=== PATIENT | female | born 1965 | race Caucasian/White ===

== ENCOUNTER 2018-05-04 20:00 | Inpatient (IN) | payer OTHER ==
[2018-05-04 20:13] LABS: Glucose,Whole Blood 89 mg/dL (75-99)
[2018-05-04] MEDS ORDERED: SODIUM CHLORIDE 0.9% 500 ML IV STA (20:13)
[2018-05-04] MEDS ORDERED: ONDANSETRON 4 MG/2 ML VIAL IVP STA (20:13)
[2018-05-04 20:26] LABS: Basophils # (A) 0.1 k/uL (0-0.2); Basophils % (A) 1 %; Eosinophils # (A) 0.1 k/uL (0-0.7); Eosinophils % (A) 1 %; HCT 47.8 % (34.0-46.0); HGB 15.9 gm/dL (11.4-16.0); Lymphocytes # (A) 3.4 k/uL (1.0-4.8); Lymphocytes % (A) 30 %; MCH 30.2 pg (25.0-35.0); MCHC 33.2 g/dL (31.0-37.0); MCV 90.8 fL (80.0-100.0); Mean Platelet Volume 6.5; Monocytes # (A) 0.4 k/uL (0-1.0); Monocytes % (A) 3 %; Neutrophils # (A) 7.1 k/uL (1.3-7.7); Neutrophils % (A) 63 %; Platelet Count 211 k/uL (150-450); RBC 5.27 m/uL (3.80-5.40); RDW 13.5 % (11.5-15.5); WBC 11.3 k/uL (3.8-10.6)
[2018-05-04 20:35] LABS: Calcium 10.7 mg/dL (8.4-10.2); Potassium 4.3 mmol/L (3.5-5.1); Total Bilirubin 0.3 mg/dL (0.2-1.3); Total Protein 9.6 g/dL (6.3-8.2)
[2018-05-04 20:36] LABS: Partial Thromboplastin Time 24.4 sec (22.0-30.0)
[2018-05-04 20:46] LABS: Creatine Kinase 27 U/L (30-135)
[2018-05-04 20:59] LABS: Creatine Kinase MB 0.5 ng/mL (0.0-2.4); Troponin I <0.012 ng/mL (0.000-0.034)
--- NOTE | 2018-05-04 21:16 | ED ---
General Adult HPI - General Chief complaint: Weakness Stated complaint: Neuro Deficits Source: patient, EMS Mode of arrival: EMS Limitations: physical limitation - History of Present Illness Initial comments: Dictation was produced using [employer] dictation software. please excuse any grammatical, word or spelling errors. Chief Complaint: 52-year-old female transferred from detox facility [facility] for left-sided facial droop History of Present Illness: Patient is a 52-year-old female with past medical history of IV drug abuse presents with facial droop. Patient states she's been feeling rather sick over the last several days. She did not notice any facial weakness. Patient was noted by [facility] staff. She reports some paresthesias to the upper and lower face. Denies any numbness pain or paresthesias to the upper extremities. She denies any history of strokes. She states she does not take any medications. She states that she has had recent flulike symptoms. The ROS documented in this emergency department record has been reviewed and confirmed by me. Those systems with pertinent positive or negative responses have been documented in the HPI. All other systems are other negative and/or noncontributory. Review of Systems ROS Statement: Those systems with pertinent positive or pertinent negative responses have been documented in the HPI. ROS Other: All systems not noted in ROS Statement are negative. Past Medical History Past Medical History: No Reported History History of Any Multi-Drug Resistant Organisms: None Reported Past Surgical History: Cholecystectomy, Orthopedic Surgery Past Psychological History: Anxiety, Depression Smoking Status: Current every day smoker Past Alcohol Use History: None Reported Past Drug Use History: Cocaine, Heroin, Marijuana, Prescription Drug Abuse General Exam - General Exam Comments Initial Comments: PHYSICAL EXAM: General Impression: Alert and oriented x3, not in acute distress HEENT: Normocephalic atraumatic, extra-ocular movements intact, pupils equal and reactive to light bilaterally, mucous membranes moist, TMs benign bilaterally Cardiovascular: Heart regular rate and rhythm, S1&S2 audible, no murmurs, rubs or gallops Chest: Lungs clear to auscultation bilaterally, no rhonchi, no wheeze, no rales Abdomen: Bowel sounds present, abdomen soft, non-tender, non-distended, no organomegaly Musculoskeletal: Pulses present and equal in all extremities, no peripheral edema Motor: Power 5/5 bilaterally, no focal deficits noted Neurological: Left-sided facial droop of the upper and lower left face Skin: Intact with no visualized rashes Psych: Normal affect and mood Limitations: physical limitation Course Vital Signs 05/04/18 05/04/18 05/04/18 20:00 20:06 20:15 Temperature 98.7 F Pulse Rate 94 80 76 Respiratory 18 18 18 Rate Blood Pressure 151/94 152/94 148/90 O2 Sat by Pulse 98 98 99 Oximetry Medical Decision Making - Medical Decision Making ED course: 52-year-old female presents with facial paralysis. Vital signs upon arrival are within acceptable limits. Patient reevaluated and has weakness of her left upper extremity and facial droop of the left lower face. Clinical presentation suggestive of CVA. Patient had TPA candidate at this time given the duration of symptoms.Patient's NIH is 3. Patient has a history of neuropathy unable to assess bilateral lower extremities secondary to chronic bilateral lower extremity weakness. CBC is obtained with a white count of 11.3. Rest of CBC unremarkable Panel unremarkable. Metabolic panel shows findings within acceptable limits. Chest x-ray shows no acute processes. Brain CT shows no acute intracranial hemorrhage or midline shift. There is diffuse H changes. There is nonspecific focus of low attenuation in the frontal white matter likely from chronic vessel ischemic changes. Patient reevaluated having persistent symptoms. Patient given an aspirin. Patient to be admitted to inpatient for CVA workup. Neurology on consult. EKG interpretation: Ventricular rate 74, IA interval 122, QS 84, QTc 435. No IA prolongation, no QTC prolongation, no ST or T-wave changes noted. EKG compared to [default value] showing no changes. Overall, this EKG is unremarkable - Lab Data Result diagrams: 05/04/18 20:13 05/04/18 20:13 Lab Results 05/04/18 05/04/18 05/04/18 Range/Units 20:12 20:13 20:13 WBC 11.3 H (3.8-10.6) k/uL RBC 5.27 (3.80-5.40) m/uL Hgb 15.9 (11.4-16.0) gm/dL Hct 47.8 H (34.0-46.0) % MCV 90.8 (80.0-100.0) fL MCH 30.2 (25.0-35.0) pg MCHC 33.2 (31.0-37.0) g/dL RDW 13.5 (11.5-15.5) % Plt Count 211 (150-450) k/uL Neutrophils % 63 % Lymphocytes % 30 % Monocytes % 3 % Eosinophils % 1 % Basophils % 1 % Neutrophils # 7.1 (1.3-7.7) k/uL Lymphocytes # 3.4 (1.0-4.8) k/uL Monocytes # 0.4 (0-1.0) k/uL Eosinophils # 0.1 (0-0.7) k/uL Basophils # 0.1 (0-0.2) k/uL PT (9.0-12.0) sec INR (<1.2) APTT (22.0-30.0) sec Sodium (137-145) mmol/L Potassium (3.5-5.1) mmol/L Chloride (98-107) mmol/L Carbon Dioxide (22-30) mmol/L Anion Gap mmol/L BUN (7-17) mg/dL Creatinine (0.52-1.04) mg/dL Est GFR (CKD-EPI)AfAm (>60 ml/min/1.73 sqM) Est GFR (CKD-EPI)NonAf (>60 ml/min/1.73 sqM) Glucose (74-99) mg/dL POC Glucose (mg/dL) 89 (75-99) mg/dL POC Glu Twisting [employer] Operator MOHAMUD Jenifer Desir Calcium (8.4-10.2) mg/dL Total Bilirubin (0.2-1.3) mg/dL AST (14-36) U/L ALT (9-52) U/L Alkaline Phosphatase (38-126) U/L Total Creatine Kinase 27 L (30-135) U/L CK-MB (CK-2) 0.5 (0.0-2.4) ng/mL CK-MB (CK-2) Rel Index 1.9 Troponin I <0.012 (0.000-0.034) ng/mL Total Protein (6.3-8.2) g/dL Albumin (3.5-5.0) g/dL 05/04/18 05/04/18 Range/Units 20:13 20:13 WBC (3.8-10.6) k/uL RBC (3.80-5.40) m/uL Hgb (11.4-16.0) gm/dL Hct (34.0-46.0) % MCV (80.0-100.0) fL MCH (25.0-35.0) pg MCHC (31.0-37.0) g/dL RDW (11.5-15.5) % Plt Count (150-450) k/uL Neutrophils % % Lymphocytes % % Monocytes % % Eosinophils % % Basophils % % Neutrophils # (1.3-7.7) k/uL Lymphocytes # (1.0-4.8) k/uL Monocytes # (0-1.0) k/uL Eosinophils # (0-0.7) k/uL Basophils # (0-0.2) k/uL PT 10.0 (9.0-12.0) sec INR 1.0 (<1.2) APTT 24.4 (22.0-30.0) sec Sodium 146 H (137-145) mmol/L Potassium 4.3 (3.5-5.1) mmol/L Chloride 112 H (98-107) mmol/L Carbon Dioxide 23 (22-30) mmol/L Anion Gap 11 mmol/L BUN 23 H (7-17) mg/dL Creatinine 0.92 (0.52-1.04) mg/dL Est GFR (CKD-EPI)AfAm 83 (>60 ml/min/1.73 sqM) Est GFR (CKD-EPI)NonAf 72 (>60 ml/min/1.73 sqM) Glucose 79 (74-99) mg/dL POC Glucose (mg/dL) (75-99) mg/dL POC Glu Twisting [employer] Operator ID Calcium 10.7 H (8.4-10.2) mg/dL Total Bilirubin 0.3 (0.2-1.3) mg/dL AST 32 (14-36) U/L ALT 56 H (9-52) U/L Alkaline Phosphatase 188 H (38-126) U/L Total Creatine Kinase (30-135) U/L CK-MB (CK-2) (0.0-2.4) ng/mL CK-MB (CK-2) Rel Index Troponin I (0.000-0.034) ng/mL Total Protein 9.6 H (6.3-8.2) g/dL Albumin 5.0 (3.5-5.0) g/dL Disposition Clinical Impression: CVA (cerebral vascular accident) Disposition: ADMITTED IP TO THIS HOSP Condition: Fair Referrals: None,Stated [Primary Care Provider] - 1-2 days Decision Time: 22:23
--- NOTE | 2018-05-04 21:26 | XR ---
EXAMINATION TYPE: XR chest 2V DATE OF EXAM: 05/04/2018 COMPARISON: NONE HISTORY: Neuro deficits. Altered mental status. TECHNIQUE: Frontal and lateral views of the chest are obtained. FINDINGS: There is no focal air space opacity, pleural effusion, or pneumothorax seen. The cardiac silhouette size is within normal limits. The osseous structures are intact. IMPRESSION: No acute cardiopulmonary process.
--- NOTE | 2018-05-04 21:28 | CT ---
EXAMINATION TYPE: CT brain wo con DATE OF EXAM: 05/04/2018 HISTORY: High blood pressure and headache x 3 days. Neural deficits per order. CT DLP: 937.5 mGycm. Automated Exposure Control for Dose Reduction was Utilized. TECHNIQUE: CT scan of the head is performed without contrast. COMPARISON: None. FINDINGS: There is no acute intracranial hemorrhage or midline shift identified. There is diffuse v entricular and sulcal prominence consistent with diffuse age-related cerebral atrophy. There is some nonspecific areas of low attenuation in the deep white matter for reference right frontal lobe axial image 28. The globes are intact and the visualized sinuses are clear. IMPRESSION: No acute intracranial hemorrhage or midline shift. There is mild diffuse age-related ce rebral atrophy. Nonspecific focus of low attenuation right frontal white matter most likely on the ba sis product of chronic small vessel ischemic change in patient of this age.
[2018-05-04] MEDS ORDERED: ASPIRIN 325 MG TAB PO STA (22:13)
[2018-05-04] MEDS: SODIUM CHLORIDE 0.9% 1,000 ML IV SCH (22:56)
[2018-05-05 00:46] VITALS: BMI 20.1
[2018-05-05] MEDS: HYDROcodone/APAP 5-325MG 1 EACH TAB PO PRN ×5 (03:34→20:28)
[2018-05-05 04:21] LABS: Amphetamine Screen,Urine Not Detected (NotDetected); Barbiturate Screen,Urine Not Detected (NotDetected); Benzodiazepines Screen,Urine Not Detected (NotDetected); Cocaine Screen,Urine Not Detected (NotDetected); Methadone Screen, Urine Not Detected (NotDetected); Opiate Screen,Urine Not Detected (NotDetected); Oxycodone Screen, Urine Not Detected (NotDetected); Phencyclidine Screen,Urine Not Detected (NotDetected); Tricyclic Antidepressant,Urine Not Detected (NotDetected); Urn Cannabinoid Scrn Not Detected (NotDetected)
[2018-05-05 06:21] LABS: Appearance,Urine Clear (Clear); Bilirubin,Urine Negative (Negative); Blood,Urine Negative (Negative); Color,Urine Light Yellow; Glucose,Urine (UA) Negative (Negative); Ketones,Urine Negative (Negative); Leukocyte Esterase,Urine Negative (Negative); Nitrite,Urine Negative (Negative); Protein,Urine Negative (Negative); Specific Gravity,Urine 1.008 (1.001-1.035); Urobilinogen,Urine <2.0 mg/dL (<2.0)
[2018-05-05 07:01] LABS: Cholesterol 158 mg/dL (<200); HDL Cholesterol 50 mg/dL (40-60); LDL Cholesterol,Calculated 59 mg/dL (0-99); Triglycerides 243 mg/dL (<150)
[2018-05-05] MEDS: NICOTINE 21MG/24HR PATCH TRANSDERM SCH (08:17)
[2018-05-05] MEDS: ASPIRIN 325 MG TAB PO SCH (08:17)
--- NOTE | 2018-05-05 09:13 | US ---
EXAMINATION TYPE: US carotid duplex BILAT DATE OF EXAM: 05/05/2018 COMPARISON: NONE CLINICAL HISTORY: Stenosis. High blood pressure, stroke per patient EXAM MEASUREMENTS: RIGHT: Peak Systolic Velocity (PSV) cm/sec ----- Right CCA: 85.7 ----- Right ICA: 91.8 ----- Right ECA: 87.9 ICA/CCA ratio: 1.1 RIGHT: End Diastole cm/sec ----- Right CCA: 28.9 ----- Right ICA: 24.5 ----- Right ECA: 21.9 LEFT: Peak Systolic Velocity (PSV) cm/sec ----- Left CCA: 80.6 ----- Left ICA: 101.6 ----- Left ECA: 82.2 ICA/CCA ratio: 1.3 LEFT: End Diastole cm/sec ----- Left CCA: 25.7 ----- Left ICA: 40.2 ----- Left ECA: 14.4 VERTEBRALS (direction of flow): Right Vertebral: Antegrade Left Vertebral: Antegrade Rhythm: Normal Mild amount of intimal thickening visualized bilaterally. No elevated velocities, no significant sten osis. IMPRESSION: I DO NOT SEE EVIDENCE OF A HEMODYNAMICALLY SIGNIFICANT STENOSIS IN EITHER CAROTID SYSTEM. Criteria for Assigning % of Stenosis / Diameter reduction (Estimation based on the indirect measurements of the internal carotid artery velocities (ICA PSV). 1. Normal (no stenosis)=ICA PSV < 125 cm/s: ratio < 2.0: ICA EDV<40 cm/s. 2. Less than 50% stenosis=ICA PSV < 125 cm/s: ratio < 2.0: ICA EDV<40 cm/s. 3. 50 to 69% stenosis=ICA PSV of 125 to 230 cm/s: ration 2.0 ? 4.0: ICA EDV 40-100 cm/s. 4. Greater than 70% stenosis to near occlusion= ICA PSV > 230 cm/s: ratio > 4.0: ICA EDV > 100 cm/s. 5. Near occlusion= ICA PSV velocities may be low or undetectable: variable ratio and ICA EDV. 6. Total occlusion=unable to detect flow.
[2018-05-05] MEDS ORDERED: ONDANSETRON 4 MG/2 ML VIAL IVP PRN (12:05)
[2018-05-05] MEDS: LORazepam 0.5 MG TAB PO PRN ×2 (17:04→22:53)
[2018-05-05] MEDS: ACETAMINOPHEN TAB 325 MG TAB PO SCH ×2 (17:04→22:52)
--- NOTE | 2018-05-05 19:15 | HP ---
HISTORY AND PHYSICAL DATE OF SERVICE: 05/05/2019. CHIEF COMPLAINT: Left facial droop. HISTORY OF PRESENT ILLNESS: This is a 52-year-old woman with a past medical history of anxiety, depression, cholecystectomy, DJD being followed by primary physician elsewhere, was in a detox facility for IV heroin in [facility]. In the facility, the patient was noted to be feeling sick over the past several days. The patient noted left side facial paralysis. Patient also had some paresthesia, numbness and weakness of the left upper extremity also. Stroke was suspected. Patient taken to [facility] and was admitted for further evaluation and treatment. Initial lab showed WBC 11.8 , sodium 146, and triglycerides 243. The drug screen is negative and a CT scan of the brain was done which showed no intracranial hemorrhage or midline shift. Mild diffuse age - related cerebral atrophy is noted. Low attenuation right frontal white matter changes was also noted and carotid Doppler was also done which showed no evidence of any hemodynamically venous stenosis. Patient admitted to the hospital for further evaluation and treatment. Neurology evaluation in progress. There is no history of fever, rigors or chills. No history of headache, loss of consciousness or seizures. PAST MEDICAL HISTORY: Of IV drug abuse, hypertension, anxiety, depression, history of nicotine dependence. MEDICATIONS: Prior to admission: 1. Motrin 600 mg t.i.d. p.r.n. 2. Tylenol 650 q.6h p.r.n. ALLERGIES: Are DARVOCET-N100. FAMILY HISTORY: History of hypertension in the family. SOCIAL HISTORY: History of smoking. History of IV heroin. REVIEW OF SYSTEMS: ENT: No diminished hearing or vision. CARDIOVASCULAR: As mentioned above. RESPIRATORY: As mentioned. GI: No nausea or vomiting. no dysuria. CENTRAL NERVOUS SYSTEM: No numbness or weakness. ALLERGY/IMMUNOLOGY: No asthma or hayfever. MUSCULOSKELETAL: As mentioned earlier. HEMATOLOGY/ONCOLOGY: No history of anemia. ENDOCRINE: No history of diabetes or hypothyroidism. CONSTITUTIONAL: As mentioned. Dermatology: Negative. Rheumatology: Negative. Psychiatry: As mentioned earlier. PHYSICAL EXAMINATION: GENERAL: The patient is alert and oriented times three. VITAL SIGNS: Pulse 77, blood pressure 161/80, respiration 18, temperature 97.3, pulse ox 98 percent on room air. HEENT: Conjunctivae normal. Oral mucosa moist. NECK is no jugular venous distention. No carotid bruit. No lymph node enlargement. Cardiovascular systems: S1, S2. Respiration: Breath sounds diminished in the bases. A few scattered rhonchi and crackles. ABDOMEN: Soft, nontender. No mass palpable. Legs: No edema and no swelling. NERVOUS SYSTEM: Higher functions as mentioned earlier. Otherwise, in all directions. Otherwise significant left upper nodule and facial palsy. Significant weakness of the left upper limb also present. No sensory abnormalities. No sensory or cerebral dysfunction. Lymphatics: No lymph nodes palpable in the neck, axillae or groin. Joints: No active deforming arthropathy. Skin: No ulcer, rash or bleeding. LAB STUDIES: WBC 11.7, sodium 148, other labs are noted. ASSESSMENT: 1. Acute left-sided weakness, stroke, possibly right hemispheric lesion. 2. Increased WBC. 3. Hypertension. 4. Hypernatremia. 5. Increased ALT. 6. History of IV drug abuse, heroin. 7. Hypertriglyceridemia. 8. History of degenerative joint disease. 9. History of anxiety, depression. 10.History of cocaine, heroin, THC, prescription drug abuse. RECOMMENDATIONS AND DISCUSSION: In this 52-year-old woman who presented with multiple complex medical issues, we will monitor the patient closely, continue the current medications, management and symptomatic treatment. Otherwise, at this time, I recommend antiplatelet agents, Lipitor complete neurovascular work up. I would also recommend a 2D echo with Doppler and MRI of the brain also. If the MRI is positive I also recommend possibly YARELY as well. The prognosis guarded because of multiple complex medical issues. See orders for details. MMODL / IJN: [id number] / MTDD
[2018-05-05] MEDS: ATORVASTATIN 20 MG TAB PO SCH (20:29)
[2018-05-05] MEDS: HEPARIN SODIUM,PORCINE 5,000 UNIT/ML 1 ML VIAL SQ SCH (20:29)
[2018-05-05] MEDS: SODIUM CHLORIDE 0.9% 1,000 ML IV SCH (21:03)
--- NOTE | 2018-05-05 22:17 | P.CNNES ---
History of Present Illness Consult date: 05/05/18 Reason for Consult: Patient with left side facial droop and left sided weakness and sroke. History of Present Illness: This patient is a 52-year-old right-handed white female who was from the [facility] in [place]. Patient states she lives in [facility] and was in the [facility] program for the last 12 days. Apparently yesterday she complained to the nursing staff at [facility] that she was having difficulty with her speech as well as some left facial droop. Nursing staff did notice left-sided facial droop at the time and decided to send her to the emergency room at [facility] for further evaluation. She was seen in the ER yesterday by Dr. Kilgore and was evaluated. Her NIH stroke scale was 3.0. Patient was not a candidate for TPA given the time duration and symptoms. She was outside of the TPA window. She was sent for a computed tomography scan of the brain which revealed no acute intracranial hemorrhage or midline shift. There was mild diffuse age-related cerebral atrophy. Nonspecific focus of low attenuation was noted in the right frontal lobe suggesting chronic small vessel ischemia. The patient was subsequently admitted to the hospital for a complete stroke evaluation. Review of her CAT scan does show a clear hypodensity suggesting possibility of acute versus subacute stroke. She does have left-sided weakness and slurred speech as well. We will proceed with a complete stroke evaluation for this patient. She has no previous history of TIA or stroke. We have recommended a complete stroke evaluation for this patient. Patient states her blood pressure at the [facility] was elevated for 4 days prior to her admission. She is now been started on antihypertensive medication. She is now been admitted and neurology has been consulted for further evaluation and recommendations. Review of Systems Constitutional: Denies chills, Denies fever Eyes: denies blurred vision, denies pain Ears, nose, mouth and throat: Denies headache, Denies sore throat Cardiovascular: Reports high blood pressure, Denies chest pain, Denies shortness of breath Respiratory: Denies cough Genitourinary: Denies dysuria, Denies hematuria Musculoskeletal: Denies myalgias Integumentary: Denies pruritus, Denies rash Neurological: Reports change in mentation, Reports change in speech, Reports confusion, Reports motor disturbance, Reports paresthesias, Reports tingling, Denies numbness, Denies weakness Psychiatric: Reports memory loss, Denies anxiety, Denies depression Endocrine: Denies fatigue, Denies weight change Past Medical History Past Medical History: No Reported History, Hypertension History of Any Multi-Drug Resistant Organisms: None Reported Past Surgical History: Cholecystectomy, Orthopedic Surgery Past Psychological History: Anxiety, Depression Smoking Status: Current every day smoker Past Alcohol Use History: None Reported Past Drug Use History: Cocaine, Heroin, Marijuana, Prescription Drug Abuse - Past Family History Mother Family Medical History: Hypertension Medications and Allergies Home Medications Medication Instructions Recorded Confirmed Type Acetaminophen Tab [Tylenol Tab] 650 mg PO Q6H 05/05/18 05/05/18 History Ibuprofen [Motrin Ib] 600 mg PO TID PRN 05/05/18 05/05/18 History Allergies Allergy/AdvReac Type Severity Reaction Status Date / Time acetaminophen Allergy Unknown Verified 05/05/18 12:07 [From Darvocet-N] propoxyphene Allergy Unknown Verified 05/05/18 12:07 [From Darvocet-N] Physical Examination - Vital Signs Vital Signs: Vital Signs Temp Pulse Pulse Resp BP BP Pulse Ox 05/05/18 04:00 97.9 F 69 16 143/84 99 05/04/18 23:10 64 18 171/100 99 05/04/18 22:56 97.8 F 58 L 18 134/84 99 05/04/18 21:00 64 18 133/92 99 05/04/18 20:15 76 18 148/90 99 05/04/18 20:06 98.7 F 80 18 152/94 98 05/04/18 20:00 94 18 151/94 98 Intake and Output 05/04/18 05/05/18 05/05/18 22:59 06:59 14:59 Output Total 500 Balance -500 Output: Urine 500 Other: Voiding Method Bedpan Weight 45.3 kg 49.5 kg - Constitutional General appearance: average body habitus, cooperative - EENT EENT: PERRL, mucous membranes moist - Respiratory Respiratory: lungs clear, normal breath sounds - Cardiovascular Cardiovascular: regular rate, normal S1, normal S2 Extremities: no peripheral edema bilaterally - Gastrointestinal Gastrointestinal: normoactive bowel sounds - Integumentary Integumentary: normal - Neurologic Cranial nerve examination: PERRL, EOMI, VFF, V1/V2/V3 grossly intact, intact gag reflex, intact corneal reflex, facial droop (Patient has a left upper motor neuron facial weakness pattern.), normal palatal elevation Speech examination: intact Sensorimotor examination: intact Motor examination - right side: 4/5: biceps, triceps, wrist flexion, wrist extension, registered dental hygienist, hip flexors, knee extensors, dorsiflexion, toe extension (EHL) , plantarflexion Motor examination - left side: 3/5: biceps, triceps, wrist flexion, wrist extension, registered dental hygienist, hip flexors, 4/5: knee extensors, dorsiflexion, toe extension ( EHL), plantarflexion Detailed sensory examination: intact Reflex and gait examination: intact Reflexes: 1+: ankle, bicep, knee, tricep - Musculoskeletal Musculoskeletal: no pain - Psychiatric Psychiatric: mood/affect appropriate, cooperative Results - Laboratory Findings CBC and BMP: 05/04/18 20:13 05/04/18 20:13 Abnormal Lab Findings: Abnormal Labs 05/04/18 05/04/18 05/04/18 20:13 20:13 20:13 WBC 11.3 H Hct 47.8 H Sodium 146 H Chloride 112 H BUN 23 H Calcium 10.7 H ALT 56 H Alkaline Phosphatase 188 H Total Creatine Kinase 27 L Total Protein 9.6 H Triglycerides 05/05/18 04:00 WBC Hct Sodium Chloride BUN Calcium ALT Alkaline Phosphatase Total Creatine Kinase Total Protein Triglycerides 243 H Assessment and Plan (1) Acute right arterial ischemic stroke, MCA (middle cerebral artery) Current Visit: Yes Status: Acute Code(s): I63.511 - CEREB INFRC D/T UNSP OCCLS OR STENOS OF RIGHT MID CEREB ART SNOMED Code(s): 887558416 (2) Hypertension Current Visit: Yes Status: Acute Code(s): I10 - ESSENTIAL (PRIMARY) HYPERTENSION SNOMED Code(s): 70212220 (3) Hyperlipidemia Current Visit: Yes Status: Acute Code(s): E78.5 - HYPERLIPIDEMIA, UNSPECIFIED SNOMED Code(s): 36023357 (4) IV drug abuse Current Visit: Yes Status: Acute Code(s): F19.10 - OTHER PSYCHOACTIVE SUBSTANCE ABUSE, UNCOMPLICATED SNOMED Code(s): 109658068 Plan: This patient is a 52-year-old female who is currently been residing at [facility] for the past 12 days. Today she was complaining of difficulty with her speech as well as left-sided weakness and left facial droop. She was brought into the emergency room at [facility] for further evaluation. She was seen in the ER by Dr. Kilgore ordered a computed tomography scan of the brain results which are noted above. Patient was not a candidate for TPA as she was having NIH stroke scale of 3.0 and was outside of the TPA window. She was admitted to hospital for a complete stroke evaluation. Computed tomography scan of the brain was done and reveals a hypodensity in the right frontoparietal region. We have recommended a MRI of the brain for further evaluation. We have recommended a complete stroke evaluation. The patient at this time. She should be maintained on 1 aspirin daily for secondary stroke prevention. She does have a history of IV drug abuse and should return to [facility] program once she medically stable. We will await the results of the MRI of the brain and we will give further recommendations at that time. Her overall prognosis at this time remains guarded. We will continue close neurological follow-up of this patient during this admission. Time with Patient: Greater than 30
[2018-05-06] MEDS: HYDROcodone/APAP 5-325MG 1 EACH TAB PO PRN ×6 (01:28→22:51)
[2018-05-06] MEDS: LORazepam 0.5 MG TAB PO PRN ×4 (04:58→22:55)
[2018-05-06] MEDS: ACETAMINOPHEN TAB 325 MG TAB PO SCH ×4 (05:51→22:48)
[2018-05-06] MEDS: PANTOPRAZOLE 40 MG TABLET PO SCH (06:29)
[2018-05-06 06:32] LABS: Basophils % (A) 1 %; Eosinophils # (A) 0.1 k/uL (0-0.7); Eosinophils % (A) 1 %; HCT 48.7 % (34.0-46.0); HGB 15.8 gm/dL (11.4-16.0); Lymphocytes # (A) 2.4 k/uL (1.0-4.8); Lymphocytes % (A) 38 %; MCH 29.7 pg (25.0-35.0); MCHC 32.5 g/dL (31.0-37.0); MCV 91.5 fL (80.0-100.0); Mean Platelet Volume 6.2; Monocytes # (A) 0.2 k/uL (0-1.0); Monocytes % (A) 4 %; Neutrophils # (A) 3.4 k/uL (1.3-7.7); Neutrophils % (A) 54 %; Platelet Count 169 k/uL (150-450); RBC 5.32 m/uL (3.80-5.40); RDW 13.3 % (11.5-15.5); WBC 6.3 k/uL (3.8-10.6)
[2018-05-06 06:42] LABS: ALT 48 U/L (9-52); AST 27 U/L (14-36); Albumin 4.2 g/dL (3.5-5.0); Alkaline Phosphatase 147 U/L (38-126); Anion Gap 9 mmol/L; Blood Urea Nitrogen 13 mg/dL (7-17); Calcium 9.6 mg/dL (8.4-10.2); Carbon Dioxide 20 mmol/L (22-30); Chloride 112 mmol/L (98-107); Glucose 98 mg/dL (74-99); Potassium 4.3 mmol/L (3.5-5.1); Sodium 141 mmol/L (137-145); Total Bilirubin 0.4 mg/dL (0.2-1.3); Total Protein 8.2 g/dL (6.3-8.2)
--- NOTE | 2018-05-06 08:57 | MR ---
EXAMINATION TYPE: MR brain wo/w con DATE OF EXAM: 05/06/2018 COMPARISON: CT brain 05/04/2018 HISTORY: Stroke TECHNIQUE: Multiplanar, multisequence images of the brain and brainstem is performed without and with IV contras t, utilizing 5 mL intravenous Gadavist . FINDINGS: Diffusion weighted images demonstrate no evidence of a recent infarct or other diffusion ab normality. There is no extra-axial fluid collection or significant white matter signal abnormality. The ventricular system and cisternal spaces are normal in size and appearance. The brain volume is age appropriate. Midline structures demonstrate normal morphology. The craniocervical junction appears within normal limits. Post contrast images demonstrate no abnormal enhancement. The dural venous sinuses appear pa tent. Next sentence there is a partially empty sella turcica with a prominent CSF measuring 1.2 cm Ma y represent a small suprasellar arachnoid cyst. Changes of mild chronic sinusitis. Nasal septal deviation with changes of chronic sinusitis noted. WHITE MATTER: There are approximately 15-20 focal areas of abnormal signal within the white matter. This includes a reas within the jess. The largest lesion is seen within the right parietal lobe measuring approximately 8 mm. There are no enhancing lesions. There are no callosal lesions. There are no lesions perpendicular to the ventricular system. IMPRESSION: 1. No evidence of acute ischemia. 2. There are nonspecific white matter changes bilaterally. Differential diagnosis would include demye linating process or remote microvascular ischemia. Other etiologies including sarcoidosis, Lyme's dis ease or vasculitis are also in the differential diagnosis. 3. 1.2 cm CSF prominence in the suprasellar cistern suggestive of a small arachnoid cyst. Partially e mpty sella turcica noted.
[2018-05-06] MEDS: ASPIRIN 325 MG TAB PO SCH (09:50)
[2018-05-06] MEDS: HEPARIN SODIUM,PORCINE 5,000 UNIT/ML 1 ML VIAL SQ SCH ×2 (09:50→20:34)
[2018-05-06] MEDS: NICOTINE 21MG/24HR PATCH TRANSDERM SCH (09:51)
--- NOTE | 2018-05-06 12:13 | ECHOF ---
Referral Reason:Thrombus MEASUREMENTS -------- HEIGHT: 127.0 cm WEIGHT: 49.4 kg BP: 157/86 IVSd: 1.0 cm (0.6 - 1.1) LVIDd: 3.4 cm (3.9 - 5.3) LVPWd: 1.2 cm (0.6 - 1.1) IVSs: 1.4 cm LVIDs: 2.5 cm LVPWs: 1.6 cm LAESV Index (A-L): 16.10 ml/m Ao Diam: 2.8 cm (2.0 - 3.7) AV Cusp: 1.6 cm (1.5 - 2.6) LA Diam: 2.8 cm (2.7 - 3.8) MV EXCURSION: 10.998 mm (> 18.000) MV EF SLOPE: 84 mm/s (70 - 150) EPSS: 1.1 cm MV E Reuben: 0.44 m/s MV DecT: 215 ms MV A Reuben: 0.65 m/s MV E/A Ratio: 0.68 RAP: 5.00 mmHg RVSP: 9.56 mmHg FINDINGS -------- Sinus rhythm. This was a technically good study. The left ventricular size is normal. There is mild concentric left ventricular hypertrophy. Overa ll left ventricular systolic function is normal with, an EF between 55 - 60 %. The right ventricle is normal in size. The left atrium is normal in size. The right atrium is normal in size. The aortic valve is trileaflet, and appears structurally normal. No aortic stenosis or regurgitation. The mitral valve leaflets are mildly thickened. Mild mitral regurgitation is present. Mild tricuspid regurgitation present. There is no evidence of pulmonary hypertension. The right v entricular systolic pressure, as measured by Doppler, is 9.56mmHg. There is no pulmonic regurgitation present. The aortic root size is normal. Normal inferior vena cava with normal inspiratory collapse consistent with estimated right atrial pre ssure of 5 mmHg. There is no pericardial effusion. CONCLUSIONS -------- 1. Sinus rhythm. 2. This was a technically good study. 3. The left ventricular size is normal. 4. There is mild concentric left ventricular hypertrophy. 5. Overall left ventricular systolic function is normal with, an EF between 55 - 60 %. 6. The left atrium is normal in size. 7. The aortic valve is trileaflet, and appears structurally normal. No aortic stenosis or regurgitati on. 8. The mitral valve leaflets are mildly thickened. 9. Mild mitral regurgitation is present. 10. Mild tricuspid regurgitation present. 11. There is no evidence of pulmonary hypertension. 12. There is no pulmonic regurgitation present. 13. The aortic root size is normal. 14. Normal inferior vena cava with normal inspiratory collapse consistent with estimated right atrial pressure of 5 mmHg. 15. There is no pericardial effusion. TERRA[employer] WORKER APPRENTICE: Allegra Shearer RDCS
--- NOTE | 2018-05-06 18:49 | PN ---
PROGRESS NOTE DATE OF SERVICE: 05/06/2018. INTERVAL HISTORY: This 52-year-old woman who was admitted with left facial droop, possible acute stroke. MRI did not show significant acute abnormality. 2D echo with Doppler showed ejection fraction around 55-60 percent. No other major valvular abnormalities as well. No chest pain. No palpitations. No fever. PHYSICAL EXAM: Alert and oriented x3. Pulse is 85, blood pressure 130/104, respiration 18, temperature 97.7, pulse ox 98 percent on room air. HEENT: Conjunctivae normal. Oral mucosa moist. Neck is no jugular venous distention. No carotid bruit. Cardiovascular: S1, S2. RESPIRATORY: Breath sounds diminished in the bases. No rhonchi. No crackles. ABDOMEN: Soft, nontender. Legs: Bilateral weakness secondary to scoliosis. Nervous system: Left facial droop and upper neuron motor facial palsy and as well as left upper limb weakness present. LABS: WBC 6.2, hemoglobin 15.8, sodium 140, potassium 4.3. ASSESSMENT: 1. Acute left-sided stroke caused by possible right hemispheric lesion. 2. Increased WBC. 3. Hypertension. 4. Hyponatremia. 5. Increased ALT. 6. History of IV drug abuse heroin. 7. Hypertriglyceridemia. 8. History of degenerative joint disease. 9. History of anxiety, depression. 10.History of cocaine, heroin, THC and prescription drug abuse. 11.Bilateral leg weakness secondary to scoliosis. 12.Gait dysfunction. RECOMMENDATIONS AND DISCUSSION: In this 52-year-old woman who presented with multiple complex medical issues, we will monitor the patient closely, continue the current medications, management and symptomatic treatment. Otherwise, at this time, I recommend possibly ECF rehab. PT/OT evaluation. Otherwise, if the family wants to take her home, we will arrange home care but overall prognosis guarded because of above mentioned multiple medical issues. Further recommendations to follow. MMODL / IJN: [id number] /
[2018-05-06] MEDS: ATORVASTATIN 20 MG TAB PO SCH (20:34)
[2018-05-06] MEDS: SODIUM CHLORIDE 0.9% 1,000 ML IV SCH (20:36)
--- NOTE | 2018-05-06 20:58 | EEG ---
ELECTROENCEPHALOGRAM REPORT DATE OF EE05/06/2018. ELECTROENCEPHALOGRAPHIC EXAMINATION REPORT: REFERRING PHYSICIAN: Dr. Valdovinos. CONSULTING/INTERPRETING PHYSICIAN: Sriram Tan MD INDICATION FOR EXAMINATION: This patient is a 52-year-old female being evaluated for acute stroke-like symptoms and altered mental status. AGE: [age]. EEG FINDINGS: A routine 21 channel awake digital EEG recording was accomplished utilizing the 10-20 international system with bipolar and referential montages. The background activity in the most alert resting state consists of a low to medium amplitude, fairly well- developed and well sustained 8-9 hertz activity over the posterior head regions. This posterior rhythm attenuates to eye opening. There is a small amount of low amplitude 18-20 Hz beta activity seen maximally over the anterior head regions. Muscle and movement artifact was observed on a few occasions during the tracing. Hyperventilation was not performed. Photic stimulation at flash frequencies of 2-30 Hz produced a minimal occipital driving response. No epileptiform discharges were seen. IMPRESSION: This EEG is within normal limits for the patient's age. The EEG failed to reveal any focal, lateralized, or epileptiform abnormalities. Clinical correlation is recommended. MMODL / IJN: [id number] /
[2018-05-07] MEDS: HYDROcodone/APAP 5-325MG 1 EACH TAB PO PRN ×6 (02:56→23:53)
[2018-05-07] MEDS: LORazepam 0.5 MG TAB PO PRN ×3 (05:23→18:42)
[2018-05-07] MEDS: ACETAMINOPHEN TAB 325 MG TAB PO SCH ×4 (05:23→23:54)
[2018-05-07] MEDS: PANTOPRAZOLE 40 MG TABLET PO SCH (06:18)
[2018-05-07 06:24] LABS: Basophils % (A) 1 %; Eosinophils # (A) 0.1 k/uL (0-0.7); Eosinophils % (A) 1 %; HCT 46.9 % (34.0-46.0); HGB 14.8 gm/dL (11.4-16.0); Lymphocytes # (A) 2.1 k/uL (1.0-4.8); Lymphocytes % (A) 37 %; MCH 29.1 pg (25.0-35.0); MCHC 31.6 g/dL (31.0-37.0); MCV 91.9 fL (80.0-100.0); Mean Platelet Volume 6.2; Monocytes # (A) 0.2 k/uL (0-1.0); Monocytes % (A) 4 %; Neutrophils # (A) 3.1 k/uL (1.3-7.7); Neutrophils % (A) 55 %; Platelet Count 155 k/uL (150-450); RDW 13.3 % (11.5-15.5); WBC 5.7 k/uL (3.8-10.6)
[2018-05-07 06:28] LABS: ALT 54 U/L (9-52); AST 30 U/L (14-36); Alkaline Phosphatase 148 U/L (38-126); Anion Gap 10 mmol/L; Blood Urea Nitrogen 13 mg/dL (7-17); Calcium 9.3 mg/dL (8.4-10.2); Carbon Dioxide 19 mmol/L (22-30); Chloride 112 mmol/L (98-107); Glucose 91 mg/dL (74-99); Potassium 4.2 mmol/L (3.5-5.1); Sodium 141 mmol/L (137-145); Total Bilirubin 0.4 mg/dL (0.2-1.3); Total Protein 7.8 g/dL (6.3-8.2)
[2018-05-07] MEDS: NICOTINE 21MG/24HR PATCH TRANSDERM SCH (08:03)
[2018-05-07] MEDS: HEPARIN SODIUM,PORCINE 5,000 UNIT/ML 1 ML VIAL SQ SCH ×2 (08:03→20:18)
--- NOTE | 2018-05-07 09:38 | P.CRDCN ---
History of Present Illness Consult date: 05/07/18 Requesting physician: Helena Thurman Reason for Consult (text): YARELY Chief complaint: Left-sided facial paralysis History of present illness: This is a 52-year-old female with history of anxiety and depression, nicotine dependence, she is currently at [facility] for IV heroin use , over the past few days patient states she has not been feeling well at all, she's been feeling weak. She noticed numbness in the left side of her face and left upper extremity, she also stated that when she touched the left side of her face she couldn't feel it. She presented to the hospital for these reasons. Initial lab work revealed a white blood cell count of 11.8, sodium 146 , potassium 4.3, BUN 23, creatinine 0.9. Troponin negative. Triglycerides 243 , cholesterol 158, LDL 59, HDL 50. Drug screen negative. CAT scan of the brain did not reveal any acute intracranial hemorrhage or midline shift. There is mild diffuse age-related cerebral atrophy noted. Nonspecific focus of low attenuation in the right frontal white matter, most likely on the basis of chronic small vessel ischemic change. EKG showed normal sinus rhythm with no acute changes. MRI does not reveal evidence of acute ischemia, nonspecific white matter changes bilaterally. 1.2 cm CSF prominence in the suprasellar system suggestive of small arachnoid cyst. EEG normal for patient's age. Carotid Doppler study did not reveal evidence of hemodynamically significant stenosis. I pressure on arrival here 150/90, heart rate in the 90s, 98% on 2 L of oxygen, she was afebrile. Blood pressure this morning 144/80 with a heart rate in the 80s, 98% on room air. At the time of my examination this morning, patient complains of pain in her back and to bilateral legs, she states that the numbness in her left hand has resolved, still some mild facial numbness per the patient. Cardiology was requested to see the patient to perform a transesophageal echocardiogram. Past Medical History Past Medical History: No Reported History, Hypertension History of Any Multi-Drug Resistant Organisms: None Reported Past Surgical History: Cholecystectomy, Orthopedic Surgery Past Psychological History: Anxiety, Depression Smoking Status: Current every day smoker Past Alcohol Use History: None Reported Past Drug Use History: Cocaine, Heroin, Marijuana, Prescription Drug Abuse - Past Family History Mother Family Medical History: Hypertension Medications and Allergies Home Medications Medication Instructions Recorded Confirmed Type Acetaminophen Tab [Tylenol Tab] 650 mg PO Q6H 05/05/18 05/05/18 History Ibuprofen [Motrin Ib] 600 mg PO TID PRN 05/05/18 05/05/18 History Allergies Allergy/AdvReac Type Severity Reaction Status Date / Time acetaminophen Allergy Unknown Verified 05/05/18 12:07 [From Darvocet-N] propoxyphene Allergy Unknown Verified 05/05/18 12:07 [From Darvocet-N] Physical Exam Vitals: Vital Signs Temp Pulse Resp BP Pulse Ox 05/07/18 08:00 96.4 F L 86 18 144/81 98 05/07/18 03:41 73 18 05/07/18 03:39 97.2 F L 73 18 156/89 97 05/07/18 00:00 98.0 F 93 18 154/101 98 05/06/18 20:00 98.4 F 90 18 157/98 97 05/06/18 16:00 97.9 F 93 18 144/90 97 05/06/18 12:00 97.7 F 85 18 136/104 98 05/06/18 09:49 97.4 F L 85 18 155/87 97 Intake and Output 05/06/18 05/07/18 05/07/18 22:59 06:59 14:59 Other: Voiding Method Bedpan Bedpan # Voids 1 Weight 49.5 kg PHYSICAL EXAMINATION: GENERAL: 52-year-old female in no acute distress at the time of my examination HEENT: Head is atraumatic, normocephalic. Pupils equal, round. Sclera anicteric. Conjunctiva are clear. Mucous membranes of the mouth are moist. Neck is supple. There is no elevated jugular venous pressure. No carotid bruit is heard. HEART EXAMINATION: Heart S1, S2 normal. No murmur or gallop heard. CHEST EXAMINATION: Lungs are clear to auscultation and precussion. No chest wall tenderness is noted on palpation or with deep breathing. ABDOMEN: Soft, nontender. Bowel sounds are heard. No organomegaly noted. EXTREMITIES: 2+ peripheral pulses with no evidence of peripheral edema and no calf tenderness noted. NEUROLOGIC [patient is awake, alert and oriented X3, patient does complain of some mild left-sided facial numbness this morning. Results 05/07/18 05:35 05/07/18 05:35 Cardiac Enzymes 05/07/18 Range/Units 05:35 AST 30 (14-36) U/L CBC 05/07/18 Range/Units 05:35 WBC 5.7 (3.8-10.6) k/uL RBC 5.10 (3.80-5.40) m/uL Hgb 14.8 (11.4-16.0) gm/dL Hct 46.9 H (34.0-46.0) % Plt Count 155 (150-450) k/uL Comprehensive Metabolic Panel 05/07/18 Range/Units 05:35 Sodium 141 (137-145) mmol/L Potassium 4.2 (3.5-5.1) mmol/L Chloride 112 H (98-107) mmol/L Carbon Dioxide 19 L (22-30) mmol/L BUN 13 (7-17) mg/dL Creatinine 0.60 (0.52-1.04) mg/dL Glucose 91 (74-99) mg/dL Calcium 9.3 (8.4-10.2) mg/dL AST 30 (14-36) U/L ALT 54 H (9-52) U/L Alkaline Phosphatase 148 H (38-126) U/L Total Protein 7.8 (6.3-8.2) g/dL Albumin 4.0 (3.5-5.0) g/dL Current Medications Generic Name Dose Route Start Last Admin Trade Name Freq PRN Reason Stop Dose Admin Acetaminophen 650 mg 05/05/18 18:00 05/07/18 05:23 Tylenol Tab PO Not Given Q6HR AGATHA Hydrocodone Bitart/Acetaminophen 1 each 05/05/18 03:04 05/07/18 08:00 [place] 5-325 PO 1 each Q4HR PRN Administration Pain Aspirin 325 mg 05/05/18 09:00 05/06/18 09:50 Aspirin PO 325 mg DAILY AGATHA Administration Atorvastatin Calcium 20 mg 05/05/18 21:00 05/06/18 20:34 Lipitor PO 20 mg HS AGATHA Administration Heparin Sodium (Porcine) 5,000 unit 05/05/18 21:00 05/07/18 08:03 Heparin SQ 5,000 unit Q12HR AGATHA Administration Sodium Chloride 1,000 mls @ 20 mls/hr 05/04/18 22:15 05/06/18 20:36 Saline 0.9% IV 20 mls/hr .Q24H AGATHA Administration Lorazepam 0.5 mg 05/05/18 13:55 05/07/18 05:23 Ativan PO 0.5 mg Q6HR PRN Administration Anxiety Nicotine 1 patch 05/05/18 09:00 05/07/18 08:03 Habitrol 21mg/24hr Patch TRANSDERM 1 patch DAILY AGATHA Administration Ondansetron HCl 4 mg 05/05/18 12:05 05/05/18 12:19 Zofran IVP 4 mg Q6HR PRN Administration Nausea And Vomiting Pantoprazole Sodium 40 mg 05/06/18 07:30 05/07/18 06:18 Protonix PO 40 mg [id number] AGATHA Administration Intake and Output 05/06/18 05/07/18 05/07/18 22:59 06:59 14:59 Other: Voiding Method Bedpan Bedpan # Voids 1 Weight 49.5 kg 05/07/18 05:35 05/07/18 05:35 EKG Interpretations (text) EKG shows normal sinus rhythm with no acute changes. Assessment and Plan Plan: Assessment and plan #1 symptoms of left-sided hand numbness and left-sided facial weakness, CVA. #2 hypertension #3 hyponatremia #4 hypertension anemia #5 history of IV drug abuse with heroin, and cocaine currently in rehab #6 anxiety and depression Plan Echocardiogram with Doppler study was performed which revealed an ejection fraction of 55-60%. Cardiology has been requested to perform a YARELY on the patient today. The risks and the benefits of the procedure were explained to the patient in detail and she is willing to proceed. This will be performed today by Dr. Wade. Further recommendations will be based on these findings and the patient's clinical course. DNP note has been reviewed, I agree with a documented findings and plan of care. Patient was seen and examined.
[2018-05-07] MEDS ORDERED: LACTATED RINGERS 1,000 ML IV ONE (14:06)
[2018-05-07] MEDS: MIDAZOLAM 2 MG/2 ML VIAL IV ONE ×2 (14:11→14:13)
[2018-05-07] MEDS: fentaNYL (PF) 50 MCG/ML 2 ML AMP IV ONE ×2 (14:11→14:13)
[2018-05-07] MEDS: ASPIRIN 325 MG TAB PO SCH (15:37)
[2018-05-07 16:46] LABS: Appearance,CSF Clear; CSF Tube Number 4; CSF Tube Volume 2; Nucleated Cells, CSF 0 u/L (0-5); Red Blood Cell,CSF 0 u/L (0-10)
--- NOTE | 2018-05-07 16:50 | PN ---
PROGRESS NOTE DATE OF SERVICE: 05/07/2018 This 52-year-old woman who was admitted with acute left-sided stroke caused by possible right hemispheric lesion still has significant weakness. No chest pain. No palpitations. No fever. No cough at this time. The patient is requesting to go home with home care at this time. The patient has significant difficulties with weakness also because of scoliosis and other issues as well. Cardiology has seen the patient and they are planning a YARELY. No chest pain. No palpitations. No fever. PHYSICAL EXAMINATION: Alert and oriented x3. Pulse 92, blood pressure 139/91, respiration 16, temperature 97.7, pulse ox 98% on 2 L. HEENT: Conjunctivae normal. Oral mucosa moist. NECK: No jugular venous distention. CARDIOVASCULAR SYSTEM: S1, S2 muffled. RESPIRATORY SYSTEM: Breath sounds diminished at the bases. There are scattered rhonchi. No crackles. ABDOMEN: Soft, non-tender. LEGS: No edema. No swelling. NERVOUS SYSTEM: Significant left hemiplegia as well as bilateral leg weakness also present. LABS: WBC 5.7, hemoglobin 14.8. Sodium 141. Chloride is 112 and alkaline phosphatase is 148. ASSESSMENT: 1. Acute left-sided stroke caused by possible right hemispheric lesion with acute cerebrovascular incident. 2. Increased white count. 3. Hypertension. 4. Hypernatremia. 5. Increased ALT. 6. History of IV drug abuse (heroin). 7. Hypertriglyceridemia. 8. History of degenerative joint disease. 9. Anxiety, depression. 10.History of cocaine, heroin, tetrahydrocannabinol, prescription drug abuse. 11.Bilateral leg weakness secondary to scoliosis. 12.Gait dysfunction. RECOMMENDATIONS AND DISCUSSION: I recommend to continue current medication, continue with antiplatelet agents, DVT prophylaxis, Lipitor. I also recommend YARELY to rule out intracardiac abnormality. Otherwise, prognosis is guarded because of multiple complex medical issues. Further recommendations to follow. MMODL / IJN: [id number] /
[2018-05-07 16:51] LABS: Total Protein,CSF 68 mg/dL (12-60)
[2018-05-07] MEDS: ATORVASTATIN 20 MG TAB PO SCH (20:18)
--- NOTE | 2018-05-07 23:03 | P.PN ---
Subjective Progress Note Date: 05/06/18 This patient is being evaluated for possible acute right hemispheric stroke. The patient presented with symptoms of left-sided facial droop and left arm weakness. She was in the drug rehabilitation program at [facility] for drug abuse. She was transferred to [facility] when she was noted to have left-sided facial droop. Patient was admitted and was able to undergo an initial computed tomography scan of the brain which failed to reveal any acute changes. She was able to complete MRI of the brain today which was reviewed and does reveal focal areas of abnormal signal in the deep white matter as well as the jess. The differential diagnosis would include ischemic stroke versus demyelinating disease such as multiple sclerosis. There were no enhancing lesions seen. We reviewed the results of the MRI today with the patient in detail. We have recommended that she undergo further testing which would include a lumbar puncture to rule out MS. We would also recommend cardiology consultation for YARELY procedure to be done to rule out possibility of PFO or atrial thrombus. We will consult with cardiology and weight their recommendation as well. The other differential diagnosis for this patient would be possibility of vasculitis. We recommend that she be evaluated by rheumatology and a consultation will be put in for Dr. Poe. The patient continues to have left-sided facial droop and weakness especially in her left upper extremity. The patient initially was considering discharge to home today however after we discussed all of her test results with her in detail she does want to proceed with further testing to establish a more definitive diagnosis for her condition. We will continue close neurological follow-up for the patient. Overall prognosis at this time remains guarded. Objective - Vital Signs Vital signs: Vital Signs Temp 97.4 F L 05/06/18 04:00 Pulse 70 05/06/18 04:00 Resp 18 05/06/18 04:00 BP 157/86 05/06/18 04:00 Pulse Ox 98 05/06/18 04:00 Intake & Output 05/05/18 05/06/18 05/06/18 18:59 06:59 18:59 Intake Total 160 Balance 160 Intake: IV 160 0.9 160 Other: Voiding Method Bedpan Bedpan # Voids 1 1 - Exam Physical Examination: PHYSICAL EXAMINATION: Patient is resting comfortably in bed. VITAL SIGNS: Blood pressure is [179/94]. Heart rate is [80]. Respiration is [20] . Temperature is [97.2]. HEENT: Head is atraumatic, neck is supple, there were no carotid bruits. CHEST: Lungs are clear to auscultation and percussion. CARDIAC: S1, S2 normal rate and rhythm. There is no murmur. ABDOMEN: Soft and nontender. Bowel sounds are present. EXTREMITIES: There is no pedal edema. Peripheral pulses are present. Neurological examination: Patient's neurological examination is unchanged from yesterday. She continues to demonstrate evidence of left-sided facial droop and left upper extremity weakness. Her speech is also slightly dysarthric at times. - Labs CBC & Chem 7: 05/07/18 05:35 05/07/18 05:35 Labs: Abnormal Lab Results - Last 24 Hours (Table) 05/06/18 05/06/18 Range/Units 06:03 06:03 Hct 48.7 H (34.0-46.0) % Chloride 112 H (98-107) mmol/L Carbon Dioxide 20 L (22-30) mmol/L Alkaline Phosphatase 147 H (38-126) U/L Assessment and Plan (1) Acute right arterial ischemic stroke, MCA (middle cerebral artery) Current Visit: Yes Status: Acute Code(s): I63.511 - CEREB INFRC D/T UNSP OCCLS OR STENOS OF RIGHT MID CEREB ART SNOMED Code(s): 285496104 (2) Hypertension Current Visit: Yes Status: Acute Code(s): I10 - ESSENTIAL (PRIMARY) HYPERTENSION SNOMED Code(s): 09665775 (3) Hyperlipidemia Current Visit: Yes Status: Acute Code(s): E78.5 - HYPERLIPIDEMIA, UNSPECIFIED SNOMED Code(s): 41746875 (4) IV drug abuse Current Visit: Yes Status: Acute Code(s): F19.10 - OTHER PSYCHOACTIVE SUBSTANCE ABUSE, UNCOMPLICATED SNOMED Code(s): 542078644 Plan: This patient is a 52-year-old female who was admitted to Hospital from [facility] program with symptoms of left-sided facial droop and left-sided weakness. The patient underwent MRI of the brain today which was reviewed in detail with the patient. There are abnormalities suggesting a differential diagnosis to include old evidence of ischemic stroke versus demyelinating disease such as MS. We have recommended the patient undergo lumbar puncture for further evaluation for MS. We have also recommended a rheumatology consultation for evaluation of INTERNET MARKETING DIRECTOR vasculitis. Dr. Poe has been consulted today. As noted the patient states that her symptoms came on suddenly while she was in the [facility] rehab program. She was being treated for IV drug abuse and heroin use. This also may be a contributing factor for the ischemic changes noted on the MRI of the brain. We have recommended the patient to undergo further evaluation and assessment. She was initially wanting to be discharged home today to her family but is now agreed to continue with our workup and recommendations so that a more definitive diagnosis for a can be given. This patient's overall prognosis at this time remains very guarded.
[2018-05-07 23:08] LABS: Amorphous Sediment,Urine Rare /hpf; Appearance,Urine Cloudy (Clear); Bilirubin,Urine Negative (Negative); Blood,Urine Negative (Negative); Color,Urine Yellow; Glucose,Urine (UA) Negative (Negative); Ketones,Urine Negative (Negative); Leukocyte Esterase,Urine Small (Negative); Mucus,Urine Rare /hpf; Nitrite,Urine Negative (Negative); PH, Urine 6.5 (5.0-8.0); Protein,Urine Negative (Negative); Specific Gravity,Urine 1.014 (1.001-1.035); Squamous Epithelial Cell,Urine 4 /hpf (0-4); Urobilinogen,Urine <2.0 mg/dL (<2.0); WBC,Urine 4 /hpf (0-5)
--- NOTE | 2018-05-07 23:15 | P.PN ---
Subjective Progress Note Date: 05/07/18 This patient is being evaluated for possible acute right hemispheric stroke. The patient did undergo MRI of the brain yesterday which revealed multiple lesions suggesting possibility of demyelinating disease versus chronic ischemic stroke areas. For this reason the patient was recommended yesterday to undergo a lumbar puncture for further evaluation for MS. She did complete the lumbar puncture this morning and we are waiting the final results. The MS panel will take 2 weeks to get the final report. We reviewed the results thus far with the patient in detail. She is scheduled to undergo YARELY procedure tomorrow to further evaluate for possibility of PFO versus atrial thrombus. The patient is to continue on aspirin daily for secondary stroke prevention. We also consulted rheumatology for further evaluation for SENIOR PROCUREMENT MANAGER vasculitis. Dr. Poe has been consulted yesterday and we will await her further recommendations. The patient otherwise seems to be relatively stable and unchanged in her neuro deficits as compared to yesterday. We did review the initial CSF results which indicate normal RBC and WBC counts. CSF protein was 68 CSF glucose 51. We would recommend the patient to continue on aspirin daily for secondary stroke prevention. As noted she is scheduled to have YARELY procedure done tomorrow morning and we will await the results from cardiology. Would continue with multiple specialists evaluating this patient for her current symptoms. We have discussed all of these findings is fine detail with the patient. She is aware of all test results. We will continue close neurological follow-up for the patient during this admission. Her overall prognosis at this time remains guarded. Objective - Vital Signs Vital signs: Vital Signs Temp 97.7 F 05/07/18 12:00 Pulse 93 05/07/18 14:34 Resp 16 05/07/18 14:34 BP 139/91 05/07/18 12:00 Pulse Ox 98 05/07/18 14:34 Intake & Output 05/07/18 05/07/18 05/08/18 06:59 18:59 06:59 Intake Total 150 Balance 150 Weight 49.5 kg Intake: IV 150 Other: Voiding Method Bedpan # Voids 1 0 1 - Exam Physical Examination: PHYSICAL EXAMINATION: Patient is resting comfortably in bed. VITAL SIGNS: Blood pressure is [139/91]. Heart rate is [87]. Respiration is [16] . Temperature is [97.7]. HEENT: Head is atraumatic, neck is supple, there were no carotid bruits. CHEST: Lungs are clear to auscultation and percussion. CARDIAC: S1, S2 normal rate and rhythm. There is no murmur. ABDOMEN: Soft and nontender. Bowel sounds are present. EXTREMITIES: There is no pedal edema. Peripheral pulses are present. Neurological examination: Patient's neurological examination is unchanged from yesterday. She continues to demonstrate evidence of left facial droop and left-sided hemiparesthesias. - Labs CBC & Chem 7: 05/07/18 05:35 05/07/18 05:35 Labs: Abnormal Lab Results - Last 24 Hours (Table) 05/07/18 05/07/18 05/07/18 Range/Units 05:35 05:35 13:30 Hct 46.9 H (34.0-46.0) % Chloride 112 H (98-107) mmol/L Carbon Dioxide 19 L (22-30) mmol/L ALT 54 H (9-52) U/L Alkaline Phosphatase 148 H (38-126) U/L CSF Total Protein 68 H (12-60) mg/dL Assessment and Plan (1) Acute right arterial ischemic stroke, MCA (middle cerebral artery) Current Visit: Yes Status: Acute Code(s): I63.511 - CEREB INFRC D/T UNSP OCCLS OR STENOS OF RIGHT MID CEREB ART SNOMED Code(s): 048287325 (2) Hypertension Current Visit: Yes Status: Acute Code(s): I10 - ESSENTIAL (PRIMARY) HYPERTENSION SNOMED Code(s): 77936694 (3) Hyperlipidemia Current Visit: Yes Status: Acute Code(s): E78.5 - HYPERLIPIDEMIA, UNSPECIFIED SNOMED Code(s): 21816859 (4) IV drug abuse Current Visit: Yes Status: Acute Code(s): F19.10 - OTHER PSYCHOACTIVE SUBSTANCE ABUSE, UNCOMPLICATED SNOMED Code(s): 203886590 Plan: This patient is a 52-year-old female who was transferred from [facility] for evaluation of left-sided facial droop and left-sided hemiparesthesias. Patient is undergone extensive stroke evaluation and completed a MRI of the brain yesterday. Results were reviewed with the patient in detail. The differential diagnosis for this MRI findings included multiple sclerosis. For this reason she underwent a lumbar puncture this morning and results are as noted above. Her actual MS panel results would take 2 weeks to obtain. In the meantime she is to undergo further testing including cardiology consultation for YARELY procedure which is scheduled to be done tomorrow morning. We have also consulted rheumatology and are waiting Dr. Poe to review of this patient's case and history for possibility of SENIOR PROCUREMENT MANAGER vasculitis. The patient has been updated on all of her test results today. She is awaiting eagerly to complete the YARELY procedure tomorrow morning. We will continue close neurological follow-up for the patient during this admission. Her overall prognosis at this time remains very guarded.
[2018-05-08] MEDS: LORazepam 0.5 MG TAB PO PRN ×3 (00:01→12:28)
[2018-05-08] MEDS: HYDROcodone/APAP 5-325MG 1 EACH TAB PO PRN ×4 (04:39→16:58)
[2018-05-08 06:12] LABS: Basophils % (A) 1 %; Eosinophils # (A) 0.1 k/uL (0-0.7); Eosinophils % (A) 2 %; HCT 47.4 % (34.0-46.0); HGB 15.5 gm/dL (11.4-16.0); Lymphocytes # (A) 2.3 k/uL (1.0-4.8); Lymphocytes % (A) 39 %; MCH 29.6 pg (25.0-35.0); MCHC 32.8 g/dL (31.0-37.0); MCV 90.2 fL (80.0-100.0); Mean Platelet Volume 6.3; Monocytes # (A) 0.2 k/uL (0-1.0); Monocytes % (A) 4 %; Neutrophils # (A) 3.2 k/uL (1.3-7.7); Neutrophils % (A) 53 %; Platelet Count 159 k/uL (150-450); RBC 5.25 m/uL (3.80-5.40)
[2018-05-08] MEDS: PANTOPRAZOLE 40 MG TABLET PO SCH (06:19)
[2018-05-08] MEDS: ACETAMINOPHEN TAB 325 MG TAB PO SCH ×3 (06:19→16:59)
[2018-05-08 06:32] LABS: ALT 65 U/L (9-52); AST 39 U/L (14-36); Albumin 4.3 g/dL (3.5-5.0); Alkaline Phosphatase 141 U/L (38-126); Anion Gap 9 mmol/L; Blood Urea Nitrogen 17 mg/dL (7-17); C Reactive Protein <5.0 mg/L (<10.0); Calcium 9.8 mg/dL (8.4-10.2); Carbon Dioxide 23 mmol/L (22-30); Chloride 109 mmol/L (98-107); Glucose 98 mg/dL (74-99); Potassium 4.5 mmol/L (3.5-5.1); Sodium 141 mmol/L (137-145); Total Bilirubin 0.6 mg/dL (0.2-1.3); Total Protein 8.2 g/dL (6.3-8.2)
--- NOTE | 2018-05-08 07:10 | P.PCN ---
Date of Procedure: 05/07/18 Procedure(s) Performed: Procedure=1-lumbar puncture . Preoperative diagnoses= multiple sclerosis. Postoperative diagnosis= multiple sclerosis. Anesthesia= moderate sedation with intravenous Versed 2 mg and fentanyl 50 micrograms ,and local lidocaine infiltration 1% 2 mL for skin and subcu infiltration. Condition= stable. Complications=none. Indication for the procedure= patient with a history of symptoms suggestive of multiple sclerosis and she was referred to have a lumbar puncture for diagnostic study procedure risk and benefits and alternatives discussed with the patient and she agreed with the preceding, Description of the procedure= patient in the procedure room sitting position and monitors applied, the back prepped with chlorhexidine x-3, sterile technique , local infiltration of the skin and subcu interstitial with lidocaine 1% 2 mL, then 22-gauge quickie Needle advanced slowly at L4 5 interlaminar space, the cerebrospinal fluid was clear, and no heme no paresthesia, a total of 10 mL of clear cerebrospinal fluid collected in 4 different tubes, the needle removed , Band-Aid applied , patient tolerated the procedure well without any complications, and further management as per her neurologist ( procedure done 05/07/2018 at 14:15 )
[2018-05-08] MEDS: NICOTINE 21MG/24HR PATCH TRANSDERM SCH (08:25)
[2018-05-08] MEDS: HEPARIN SODIUM,PORCINE 5,000 UNIT/ML 1 ML VIAL SQ SCH (08:25)
[2018-05-08] MEDS: ASPIRIN 325 MG TAB PO SCH (08:25)
[2018-05-08 08:59] LABS: Erythrocyte Sedimentation Rate 12 mm/hr (0-20)
[2018-05-08] MEDS ORDERED: fentaNYL (PF) 50 MCG/ML 2 ML AMP ONE (11:04)
[2018-05-08] MEDS ORDERED: MIDAZOLAM 2 MG/2 ML VIAL ONE (11:04)
[2018-05-08] MEDS ORDERED: BENZOCAINE SPRAY 1 CAN MUCOUS MEM ONE (11:18)
[2018-05-08] MEDS ORDERED: fentaNYL (PF) 50 MCG/ML 2 ML AMP IV ONE (11:20)
[2018-05-08] MEDS: MIDAZOLAM 2 MG/2 ML VIAL IV ONE ×2 (11:20→11:25)
[2018-05-08] MEDS ORDERED: SODIUM CHLORIDE 0.9% 1,000 ML IV ONE (11:20)
[2018-05-08] MEDS ORDERED: MIDAZOLAM 2 MG/2 ML VIAL IV ONE (11:27)
--- NOTE | 2018-05-08 11:51 | P.CONS ---
History of Present Illness - Reason for Consult Consult date: 05/07/18 vasculitis Requesting physician: Sriram Tan - Chief Complaint left sided facial droop and left arm weakness - History of Present Illness Patient is a 52-year-old female with previous medical history of IV drug use, cocaine use, degenerative arthritis of multiple joints, scoliosis of the spine with bilateral lower extremity weakness and patient is wheelchair bound, who has been staying in [facility] for the past 12 days, was been feeling unwell with high blood pressure for about 4 days treated with Catapres as needed when on Sunday, May 04, patient awoke with left-sided facial droop and left arm weakness and alerted the nurse at the facility and was brought to the ER. CT of the brain was done which revealed low attenuation right frontal white matter changes, carotid artery Doppler was normal. Patient is being followed by Dr. Tan inpatient for stroke evaluation. Review of Systems Neurological: Reports numbness, Reports paresthesias, Reports tingling, Reports transient paralysis, Reports weakness Past Medical History Past Medical History: No Reported History, Hypertension History of Any Multi-Drug Resistant Organisms: None Reported Past Surgical History: Cholecystectomy, Orthopedic Surgery Past Psychological History: Anxiety, Depression Smoking Status: Current every day smoker Past Alcohol Use History: None Reported Past Drug Use History: Cocaine, Heroin, Marijuana, Prescription Drug Abuse - Past Family History Mother Family Medical History: Hypertension Medications and Allergies Home Medications Medication Instructions Recorded Confirmed Type Acetaminophen Tab [Tylenol Tab] 650 mg PO Q6H 05/05/18 05/05/18 History Ibuprofen [Motrin Ib] 600 mg PO TID PRN 05/05/18 05/05/18 History Allergies Allergy/AdvReac Type Severity Reaction Status Date / Time acetaminophen Allergy Unknown Verified 05/05/18 12:07 [From Darvocet-N] propoxyphene Allergy Unknown Verified 05/05/18 12:07 [From Darvocet-N] Physical Exam Vitals: Vital Signs Temp Pulse Resp BP Pulse Ox 05/08/18 08:00 97.6 F 89 18 135/87 94 L 05/08/18 04:00 97.4 F L 78 18 148/87 98 05/08/18 00:00 97.2 F L 81 18 154/93 98 05/07/18 20:00 96.3 F L 86 18 141/97 97 05/07/18 16:00 97.1 F L 86 16 133/85 97 05/07/18 14:34 93 16 98 05/07/18 14:04 92 16 98 05/07/18 12:00 97.7 F 87 16 139/91 96 Intake and Output 05/07/18 05/08/18 05/08/18 22:59 06:59 14:59 Intake Total 100 Balance 100 Intake: IV 100 Other: Voiding Method Bedpan Bedpan # Voids 1 2 Weight 49.2 kg On physical exam patient does have bony hypertrophy of bilateral hands with no lexy evidence of synovitis. Patient's client partner strength and strength in the left arm is decreased compared to right. Patient does have facial droop on the left. Results CBC & Chem 7: 05/08/18 05:56 05/08/18 05:56 Labs: Abnormal Lab Results - Last 24 Hours (Table) 05/07/18 05/07/18 05/08/18 Range/Units 13:30 22:15 05:56 Hct 47.4 H (34.0-46.0) % Chloride (98-107) mmol/L AST (14-36) U/L ALT (9-52) U/L Alkaline Phosphatase (38-126) U/L Urine Appearance Cloudy H (Clear) Ur Leukocyte Esterase Small H (Negative) Amorphous Sediment Rare H (None) /hpf Urine Mucus Rare H (None) /hpf CSF Total Protein 68 H (12-60) mg/dL 05/08/18 Range/Units 05:56 Hct (34.0-46.0) % Chloride 109 H (98-107) mmol/L AST 39 H (14-36) U/L ALT 65 H (9-52) U/L Alkaline Phosphatase 141 H (38-126) U/L Urine Appearance (Clear) Ur Leukocyte Esterase (Negative) Amorphous Sediment (None) /hpf Urine Mucus (None) /hpf CSF Total Protein (12-60) mg/dL Microbiology - Last 24 Hours (Table) 05/07/18 13:30 CSF Gram Stain - Preliminary Cerebral Spinal Fluid CSF Culture - Preliminary Assessment and Plan (1) Degenerative joint disease, multiple joints on both sides of body Current Visit: Yes Status: Chronic Priority: Low Code(s): M15.9 - POLYOSTEOARTHRITIS, UNSPECIFIED SNOMED Code(s): 212741295 (2) Acute right arterial ischemic stroke, MCA (middle cerebral artery) Current Visit: Yes Status: Acute Code(s): I63.511 - CEREB INFRC D/T UNSP OCCLS OR STENOS OF RIGHT MID CEREB ART SNOMED Code(s): 982889601 Plan: Patient is a 52-year-old female with previous medical history of IV drug use, cocaine use, degenerative arthritis of multiple joints, scoliosis of the spine with bilateral lower extremity weakness and patient is wheelchair bound, who has been staying in [facility] for the past 12 days, was been feeling unwell with high blood pressure for about 4 days treated with Catapres as needed when on Sunday, May 04, patient awoke with left-sided facial droop and left arm weakness and alerted the nurse at the facility and was brought to the ER. CT of the brain was done which revealed low attenuation right frontal white matter changes, carotid artery Doppler was normal. Patient is being followed by Dr. Dominick greene. Patient does discuss that she has had issues with arthritis and does have morning stiffness for hours. Patient admits to occasional joint swelling in the hands but denies warm or erythematous joint. Patient also discussed that she was diagnosed with scoliosis child and had tried both interventions such as bases but nothing really worked and patient has used a wheelchair for 17 years for lower extremity weakness secondary to her scoliosis. Patient feels that she has been doing about the same since she was admitted. Patient denies any rash, kidney issues, lung issues, denies hemoptysis, denies history of proteinuria, or recurrent sinus infections. Patient denies a history of DVT or PE. Sedimentation rate was not done so we will order that today along with rheumatoid factor, DWIGHT, complement, ANCA panel as well as CMP, CRP and UA. On physical exam patient does have bony hypertrophy of bilateral hands with no lexy evidence of synovitis. Patient's client partner strength and strength in the left arm is decreased compared to right. Patient does have facial droop on the left. On review of labs patient's white blood cell count 11.3, hemoglobin 15.9, hematocrit 47.8, creatinine 0.92, calcium elevated 10.7, creatinine kinase 27, ALT mildly elevated 56, AST normal at 32 alkaline phosphatase 188, UA done on was negative for protein or blood. Patient did have a lumbar puncture today. Patient did have MRI which demonstrated "no evidence of acute ischemia, nonspecific white matter changes bilaterally, differential diagnosis includes demyelinating process or remote microvascular ischemia or other etiologies including sarcoidosis Lyme disease or vasculitis; 1.2 cm CSF prominence in the suprasellar system suggests a small arachnoid cyst". Cardiology was consulted, echocardiogram revealed ejection fraction of 55-60% and patient will have a YARELY. Today I will order ESR, CRP, CMP, ANCA, UA, and complement for possible small vessel vasculitis. If patient is discharged, patient may follow-up with our office as outpatient if labs suggest vasculitis. Time with Patient: Greater than 30
[2018-05-08 12:09] LABS: Rheumatoid Factor 7 IU/mL (0-15)
[2018-05-08] MEDS ORDERED: SODIUM CHLORIDE 0.9% 1,000 ML IV SCH (12:30)
[2018-05-08 12:53] VITALS: RESP 18
[2018-05-08 13:46] VITALS: BP 129/88; PULSE 77; TEMP 97.6
--- NOTE | 2018-05-08 14:05 | P.TEE ---
Indications for Procedure(s): CVA Date of Procedure: 05/08/18 Preoperative Diagnosis: CVA, rule out Cardec source of emboli Postoperative Diagnosis: Suspicious echodensity area in the left atrium. Left atrial thrombus cannot be ruled out Procedure(s) Performed: YARELY exam Description of Procedure(s): INDICATION: Patient is admitted to the hospital with diagnosis of CVA. A YARELY is requested to rule out Cardec source of emboli CONSENT: Verbal consent was obtained from the patient PROCEDURE: Patient was brought to the lab in a fasting state. She was given IV Versed of about 3.5-4 mg and 50 of fentanyl. He at the throat was sprayed with Cetacaine. A lubricated Omni probe was introduced in the oropharynx and multiple views were obtained. Patient tolerated the procedure well. No immediate complications. Color and pulse Doppler was performed. Saline contrast bubble injection was also performed IMPRESSION: The aortic valve is tricuspid and function normally. The mitral valve is anatomically normal and function normally with mild mitral regurgitation and tricuspid valve appears to be normal. The interatrial septum is intact without any spontaneous silent. Injection of the contrast saline bubbles did not reveal any crossing of the bubbles across the intra-atrial septum. The left ankle function is normal. There is a suspicious echodensity area in the left atrial appendage. Thrombus cannot be excluded. Final impression: #1. No PFO #2. Suspicious echodensity in the left atrial appendage. Thrombus cannot be excluded #3. Normal valvular function, except mild mitral regurgitation #4. Normal LV function[]
--- NOTE | 2018-05-08 16:30 | PN ---
PROGRESS NOTE DATE OF SERVICE: 05/08/2018. INTERVAL HISTORY: This 52-year-old woman who was admitted with left-sided stroke is being closely monitored. YARELY showed suspicious LA clot. Hematology and Neurology is following the patient closely. The patient also has history of substance abuse also. A lumbar puncture was also done per Neurology recommendations and the final reports are pending. The CSF protein 68 and DWIGHT screen was positive. Rheumatoid factor only 7. EXAM: Alert and oriented x3. The pulse is 77, blood pressure 120/88, respiration 18, temperature 97.2, pulse ox 97 percent on room air. HEENT: Conjunctivae normal. Oral mucosa moist. Neck is no jugular venous distention. No carotid bruit. No lymph node enlargement. Cardiovascular system: S1, S2. Respiratory: Breath sounds diminished in the bases. No rhonchi and no crackles. ABDOMEN: Soft, nontender. Legs: Bilateral leg weakness. Nervous system: Higher functions as mentioned earlier. Left upper motor neuron facial palsy. Significant weakness of the left upper limb present. Skin: No ulcer, rash or bleeding. Joints: No active deforming arthropathy. LABORATORY DATA: Labs CBC within normal limits, sodium 140, potassium 4.5, AST 39, ALT is 65, alkaline phosphatase 141. UA noted. ASSESSMENT: 1. Acute left-sided stroke caused by possible right hemispheric lesion with acute cerebrovascular accident. 2. Increased WBC. 3. Possible left LA clot. 4. Hypertension. 5. Hyponatremia. 6. Positive DWIGHT. 7. Increased ALT. 8. History IV drug abuse, heroin. 9. Hypertriglyceridemia. 10.History of degenerative joint disease. 11.History of anxiety, depression. 12.History of cocaine heroin, THC, prescription drug abuse. 13.Bilateral leg weakness secondary to scoliosis. 14.Gait dysfunction. RECOMMENDATIONS AND DISCUSSION: Recommend to continue current management. Continue current medications, monitoring and symptomatic treatment. Otherwise, at this time, the patient would like to go home. I would recommend arrange home PT/OT evaluation, but otherwise we will await cardiology evaluation and recommendations regarding the possible LA clot and I would also recommend rheumatology evaluation because of the positive DWIGHT. Overall prognosis guarded because of multiple complex medical issues. Further recommendations to follow. MMODL / IJN: [id number] /
[2018-05-09 11:59] LABS: ANA Pattern Homogeneous; ANA Pattern 2 Nucleolar
[2018-05-09 12:59] LABS: C-ANCA <1:20 Titer (<1:20); P-ANCA <1:20 Titer (<1:20)
[2018-05-09 13:56] LABS: IgG - CSF 4.7 mg/dL (0.0 - 3.4); IgG/Albumin Index (CSF) 0.42 (0.00 - 0.77)
--- NOTE | 2018-05-09 19:22 | P.PN ---
Subjective Progress Note Date: 05/08/18 This patient is being evaluated for possible acute right hemispheric stroke. The patient did undergo MRI of the brain yesterday which revealed multiple lesions suggesting possibility of demyelinating disease versus chronic ischemic stroke areas. For this reason the patient was recommended yesterday to undergo a lumbar puncture for further evaluation for MS. She did complete the lumbar puncture this morning and we are waiting the final results. The MS panel will take 2 weeks to get the final report. We reviewed the results thus far with the patient in detail. She is scheduled to undergo YARELY procedure tomorrow to further evaluate for possibility of PFO versus atrial thrombus. The patient is to continue on aspirin daily for secondary stroke prevention. We also consulted rheumatology for further evaluation for MEDICAL TRANSCRIPTION vasculitis. Dr. Poe has been consulted yesterday and we will await her further recommendations. The patient otherwise seems to be relatively stable and unchanged in her neuro deficits as compared to yesterday. We did review the initial CSF results which indicate normal RBC and WBC counts. CSF protein was 68 CSF glucose 51. We would recommend the patient to continue on aspirin daily for secondary stroke prevention. The patient was able to complete a YARELY procedure today and finally impression on the YARELY indicates no evidence for PFO. There was suspicious echodensity in the left atrial appendage. Thrombus cannot be excluded. Normal valvular function except mild mitral regurgitation. Normal LV function was noted. We did discuss this results of the YARELY today with the nurse practitioner Ms. Zara Ribeiro. She apparently discussed the YARELY results with Dr. VC Kuarh would discuss the case further with Dr. Wade. Apparently final impression is that there was no evidence of an atrial thrombus on this YARELY procedure performed today. The patient is also been evaluated for possibility of multiple sclerosis. She underwent a lumbar puncture. Spinal fluid results indicate CSF glucose of 51 and CSF protein of 68. IgG synthesis rate was 0. CSF oligoclonal bands was negative study and does not support a diagnosis of multiple sclerosis. We have discussed the results of the YARELY in the lumbar puncture today with the patient. We have suggested that she follow up locally in [place] with her primary care physician after she is discharged home. Her MRI results are now more consistent with vascular ischemic changes which are old and not new or acute. She has been evaluated by rheumatology and multiple blood test have been ordered and she should follow-up with Dr. Poe for these results as outpatient. Would continue with multiple specialists evaluating this patient for her current symptoms. We have discussed all of these findings is fine detail with the patient. She is aware of all test results. We will continue close neurological follow-up for the patient during this admission. Her overall prognosis at this time remains guarded. Patient is from out of town and should follow-up with her primary care physician in [facility]. If she wishes neurological follow-up she may schedule a follow-up in our outpatient neurology clinic in 3-4 weeks. Her overall prognosis at this time remains guarded. Objective - Vital Signs Vital signs: Vital Signs Temp 97.8 F 05/08/18 12:52 Pulse 89 05/08/18 12:52 Resp 18 05/08/18 12:52 BP 131/91 05/08/18 12:52 Pulse Ox 96 05/08/18 12:52 Intake & Output 05/07/18 05/08/18 05/08/18 18:59 06:59 18:59 Intake Total 150 100 Balance 150 100 Weight 49.2 kg Intake: IV 150 100 Other: Voiding Method Bedpan # Voids 0 2 - Exam Physical Examination: PHYSICAL EXAMINATION: Patient is resting comfortably in bed. VITAL SIGNS: Blood pressure is [129/88]. Heart rate is [77]. Respiration is [18] . Temperature is [97.7]. HEENT: Head is atraumatic, neck is supple, there were no carotid bruits. CHEST: Lungs are clear to auscultation and percussion. CARDIAC: S1, S2 normal rate and rhythm. There is no murmur. ABDOMEN: Soft and nontender. Bowel sounds are present. EXTREMITIES: There is no pedal edema. Peripheral pulses are present. Neurological examination: Patient's neurological examination is unchanged from yesterday. She continues to demonstrate evidence of left facial droop and left-sided hemiparesthesias. - Labs CBC & Chem 7: 05/08/18 05:56 05/08/18 05:56 Labs: Abnormal Lab Results - Last 24 Hours (Table) 05/07/18 05/07/18 05/08/18 Range/Units 13:30 22:15 05:56 Hct 47.4 H (34.0-46.0) % Chloride (98-107) mmol/L AST (14-36) U/L ALT (9-52) U/L Alkaline Phosphatase (38-126) U/L Urine Appearance Cloudy H (Clear) Ur Leukocyte Esterase Small H (Negative) Amorphous Sediment Rare H (None) /hpf Urine Mucus Rare H (None) /hpf CSF Total Protein 68 H (12-60) mg/dL 05/08/18 Range/Units 05:56 Hct (34.0-46.0) % Chloride 109 H (98-107) mmol/L AST 39 H (14-36) U/L ALT 65 H (9-52) U/L Alkaline Phosphatase 141 H (38-126) U/L Urine Appearance (Clear) Ur Leukocyte Esterase (Negative) Amorphous Sediment (None) /hpf Urine Mucus (None) /hpf CSF Total Protein (12-60) mg/dL Microbiology - Last 24 Hours (Table) 05/07/18 13:30 CSF Gram Stain - Preliminary Cerebral Spinal Fluid CSF Culture - Preliminary Assessment and Plan (1) Acute right arterial ischemic stroke, MCA (middle cerebral artery) Status: Acute Code(s): I63.511 - CEREB INFRC D/T UNSP OCCLS OR STENOS OF RIGHT MID CEREB ART SNOMED Code(s): 344552446 (2) Hypertension Status: Acute Code(s): I10 - ESSENTIAL (PRIMARY) HYPERTENSION SNOMED Code(s) : 17841893 (3) Hyperlipidemia Status: Acute Code(s): E78.5 - HYPERLIPIDEMIA, UNSPECIFIED SNOMED Code(s): 66527868 (4) IV drug abuse Status: Acute Code(s): F19.10 - OTHER PSYCHOACTIVE SUBSTANCE ABUSE, UNCOMPLICATED SNOMED Code(s): 684925287 Plan: This patient is a 52-year-old female initially admitted to hospital with left- sided stroke symptoms. She underwent a MRI of the brain which revealed chronic ischemic changes. Differential diagnosis included multiple sclerosis and vasculitis. Patient was recommended to undergo YARELY procedure for further evaluation for possibility of ischemic stroke. YARELY procedure was completed today results are as noted above. After discussion between Dr. Cunningham and Dr. VC Jensen it was decided that the YAREYL was negative for any evidence for atrial thrombus. We are recommending based on this YARELY result that the patient be maintained on full dose aspirin 325 mg daily for secondary stroke prevention. Results of her spinal fluid were available today and reviewed and is negative for any evidence for multiple sclerosis. She was seen by rheumatology and was evaluated by Dr. Poe and laboratory testing has been ordered. The patient is neurologically stable with still mild left-sided weakness and facial droop. We have reviewed all of the test results in detail with the patient as well as her son who is at bedside. All of their questions were answered. We are recommending that the patient follow-up locally with her primary care physician in the [place] area where she is living. She is from out of town and was at the [place] [facility] when she was admitted to our hospital. We've recommended she follow-up with her primary care physician within a week and is welcome to make a follow-up in the outpatient neurology clinic in 2-3 weeks for reevaluation and reassessment if necessary. We reviewed all of these test results today with the patient in detail. She is being considered for discharge home later today. Her overall prognosis at this time remains guarded.
--- NOTE | 2018-05-10 18:23 | DS ---
DISCHARGE SUMMARY FINAL DIAGNOSES: 1. Acute left-sided stroke, also possible right lesion with acute cerebrovascular accident. 2. Increased WBC. 3. Possible left LA clot. 4. Hypertension. 5. Hyponatremia. 6. Positive DWIGHT. 7. Increased ALT. 8. History of IV drug abuse heroin. 9. Hypertriglyceridemia. 10.History of degenerative joint disease. 11.Anxiety/depression. 12.History of cocaine heroine, THC, history of prescription drug abuse. 13.Bilateral leg weakness secondary to scoliosis. 14.Gait dysfunction. DISCHARGE DISPOSITION: The patient is being discharged in stable condition with guarded prognosis. The total time taken 35 minutes. HISTORY OF PRESENT ILLNESS: This 52-year-old woman with a past medical history of multiple medical problems admitted with acute left-sided stroke. The patient noted to have right hemispheric lesion. Neurovascular workup was negative. YARELY showed possible LA clot. Cardiology saw the patient and recommended outpatient followup. On exam, vital signs are stable. Cardiovascular: S1, S2. Abdomen soft. Nervous system: No focal deficits. The patient is being discharged in stable condition with guarded prognosis. DISCHARGE INSTRUCTIONS: 1. Diet is cardiac diet. 2. Activity limited until followup. 3. Follow up with primary physician in 2-3 days. 4. Follow up with Cardiology and neurology as recommended. MEDICATIONS: 1. Tylenol 650 q.6h. 2. Ecotrin 320 mg p.o. daily. 3. Lipitor 20 mg q.h.s. 4. Habitrol 21 daily. 5. Protonix 40 mg b.i.d. Once again, the patient is being discharged in stable condition with guarded prognosis. Issue of suspected LA clot to be addressed by Cardiology. MMODL / IJN: [id number] /
== END 2018-05-08 17:45 | disposition home health service (06) | DRG 65 ==
LOC: EC 20:00 → 6SEL 22:15
PROVIDERS: ADMIT Internal Medicine; ATTEND Internal Medicine
PROC: 009U3ZX Drainage of Spinal Canal, Percutaneous Approach, Diagnostic (ICD-10-PCS; principal; 2018-05-07 14:00)
PROC: B246ZZ4 Ultrasonography of Right and Left Heart, Transesophageal (ICD-10-PCS; 2018-05-08)
DX: I63.9 Cerebral infarction, unspecified (principal); E87.0 Hyperosmolality and hypernatremia; I23.6 Thrombosis of atrium, auricular appendage, and ventricle as current complications following acute myocardial infarction; E87.1 Hypo-osmolality and hyponatremia; M41.9 Scoliosis, unspecified; G35 Multiple sclerosis; F41.9 Anxiety disorder, unspecified; G62.9 Polyneuropathy, unspecified; R29.810 Facial weakness; R47.1 Dysarthria and anarthria; R47.81 Slurred speech; G83.24 Monoplegia of upper limb affecting left nondominant side; R40.2362 Coma scale, best motor response, obeys commands, at arrival to emergency department; R40.2142 Coma scale, eyes open, spontaneous, at arrival to emergency department; R40.2252 Coma scale, best verbal response, oriented, at arrival to emergency department; R29.704 NIHSS score 4; I34.0 Nonrheumatic mitral (valve) insufficiency; E78.5 Hyperlipidemia, unspecified; I10 Essential (primary) hypertension; E78.1 Pure hyperglyceridemia; F11.10 Opioid abuse, uncomplicated; F14.10 Cocaine abuse, uncomplicated; F12.10 Cannabis abuse, uncomplicated; M54.9 Dorsalgia, unspecified; M19.91 Primary osteoarthritis, unspecified site; F17.200 Nicotine dependence, unspecified, uncomplicated; Z71.6 Tobacco abuse counseling; Z90.49 Acquired absence of other specified parts of digestive tract; Z99.3 Dependence on wheelchair; Z86.59 Personal history of other mental and behavioral disorders; Z88.6 Allergy status to analgesic agent; Z88.5 Allergy status to narcotic agent; Z82.49 Family history of ischemic heart disease and other diseases of the circulatory system
CPT/HCPCS: 36415; 62270; 70450; 70553; 71046; 80053; 80061; 80306; 81001; 81003; 82040; 82042; 82550; 82553; 82784; 82945; 83916; 84157; 84484; 85025; 85610; 85652; 85730; 86038; 86039; 86140; 86160; 86162; 86255; 86431; 87070; 87205; 87476; 88108; 89050; 93005; 93306; 93312; 93320; 93325; 93880; 95819; 96361; 96374; 99285